=== PATIENT | male | born 1970 | race Caucasian/White ===

== ENCOUNTER 2022-03-07 13:55 | Emergency (ER) | payer OTHER ==
[2022-03-07 14:54] LABS: BILIRUBIN NEGATIVE (NEGATIVE); BLOOD 2+ Ery/uL (NEGATIVE); CLARITY CLEAR (CLEAR); COLOR YELLOW (YELLOW); GLUCOSE (U) NORMAL (NORMAL); LEUKOCYTES NEGATIVE Leu/uL (NEGATIVE); NITRITE NEGATIVE (NEGATIVE); PROTEIN NEGATIVE (NEGATIVE); SPECIFIC GRAVITY 1.015 (1.001-1.030); UROBILINOGEN 0.2 mg/dL (0.2-1.0)
[2022-03-07 15:01] LABS: BASOPHIL 0.3 % (0-2); EOSINOPHIL 0 % (0-5); HCT 43.6 % (42.0-52.0); HGB 14.6 g/dl (13.2-18.0); LYMPHOCYTE 22.1 % (15-48); MCH 31.5 pg (25.0-31.0); MCHC 33.5 g/dL (32.0-36.0); MONOCYTE 15.2 % (0-12); MPV 9.4 fL (6.0-9.5); NEUTROPHIL 62.1 % (41-80); NRBC 0; PLT 196 K/uL (150-400); RBC 4.64 M/uL (4.70-6.00); RDW 12.6 % (11.5-14.0); WBC 3.8 K/uL (4.0-10.5)
[2022-03-07 15:11] LABS: BACTERIA 1+; MUCOUS TRACE
[2022-03-07 15:19] LABS: CREATININE 1.21 mg/dL (0.67-1.17); POTASSIUM 3.4 mmol/L (3.5-5.1)
[2022-03-07 15:58] LABS: INFLUENZA A NAA NEGATIVE (NEGATIVE)
[2022-03-07 16:00] LABS: CORONAVIRUS 2019 SARS-COV-2 POSITIVE (NEGATIVE)
== END 2022-03-07 16:29 | disposition home or self-care (01) ==
LOC: FER 13:55
PROVIDERS: Nurse Practitioner Family
DX: U07.1 COVID-19 (principal); F17.210 Nicotine dependence, cigarettes, uncomplicated; Z28.310 Unvaccinated for COVID-19; Z88.8 Allergy status to other drugs, medicaments and biological substances; Z88.5 Allergy status to narcotic agent
CPT/HCPCS: 36415; 80048; 81001; 85025; 87088; 99283; J7030; U0002